=== PATIENT | male | born 1980 | race Caucasian/White ===

== ENCOUNTER 2019-08-26 08:28 | Inpatient (IN) | payer SELFPAY ==
[2019-08-26] MEDS ORDERED: Cefepime(*) 2 GM in NS 0.9% 50 ML* 50 ML IVPB ONE (08:46)
[2019-08-26] MEDS ORDERED: metroNIDAZOLE IV 500 MG/100ML* 500 MG/100 ML BAG IVPB ONE (08:46)
--- NOTE | 2019-08-26 08:46 | ED ---
Skin Complaint - HPI Summary HPI Summary: This pt is a 39 y/o male presenting to [facility] c/o left arm wound and pain since 2 days ago. Pt reports he believes he got stung on his left arm about 2 days ago. He notes that last night his arm began swelling. Denies IVDU. Denies fever or chills. Denies any other symptoms. He currently rates his left arm pain as 5/ 10 in severity and describes it as sore. Pt admits to smoking and occasional alcohol. Denies drug use. PMHx splenectomy. - History of Current Complaint Chief Complaint: EDRashSkinAbscess Stated Complaint: STUNG/BITE PER PATIENT Hx Obtained From: Patient Onset/Duration: Started Days Ago, Still Present Skin Exposure Onset/Duration: Days Ago Timing: Lasting Days Current Severity: Moderate Pain Intensity: 5 Pain Scale Used: 0-10 Numeric Skin Location: Arm - left Character: Swelling, Pain, Redness Aggravating Symptom(s): Nothing Alleviating Symptom(s): Nothing Associated Signs & Symptoms: Negative Related History: Other: - hx splenectomy - Allergy/Home Medications Allergies/Adverse Reactions: Allergies Allergy/AdvReac Type Severity Reaction Status Date / Time No Known Allergies Allergy Verified 08/26/19 08:37 Home Medications: Home Medications NK [No Home Medications Reported] 08/26/19 [History Confirmed 08/26/19] PMH/Surg Hx/FS Hx/Imm Hx Endocrine/Hematology History: Denies: Hx Diabetes Cardiovascular History: Denies: Hx Hypertension - Surgical History Surgical History: Yes Surgery Procedure, Year, and Place: Splenectomy Infectious Disease History: No Infectious Disease History: Denies: Traveled Outside the [place] in Last 30 Days - Family History Known Family History: Positive: Hypertension, Diabetes - grandmother - Social History Alcohol Use: Occasionally Substance Use Type: Reports: None Smoking Status (MU): Current Some Day Smoker Review of Systems Negative: Fever, Chills ENT: Negative Cardiovascular: Negative Musculoskeletal: Other - POSITIVE: left arm pain Skin: Other - POSITIVE: swelling on left arm, wound on left arm All Other Systems Reviewed And Are Negative: Yes Physical Exam - Summary Physical Exam Summary: VITAL SIGNS: Reviewed. GENERAL: Patient is a well-developed and nourished male who is lying comfortable in the stretcher. Patient is not in any acute respiratory distress. HEAD AND FACE: No signs of trauma. No ecchymosis, hematomas or skull depressions. No sinus tenderness. EYES: PERRLA, EOMI x 2, No injected conjunctiva, no nystagmus. EARS: Hearing grossly intact. Ear canals and tympanic membranes are within normal limits. MOUTH: Oropharynx within normal limits. NECK: Supple, trachea is midline, no adenopathy, no JVD, no carotid bruit, no c- spine tenderness, neck with full ROM. CHEST: Symmetric, no tenderness at palpation. LUNGS: Clear to auscultation bilaterally. No wheezing or crackles. CVS: Regular rate and rhythm, S1 and S2 present, no murmurs or gallops appreciated. ABDOMEN: Soft, non-tender. No signs of distention. No rebound, no guarding, and no masses palpated. Bowel sounds are normal. EXTREMITIES: FROM in all major joints, no cyanosis or clubbing. NEURO: Alert and oriented x 3. No acute neurological deficits. Speech is normal and follows commands. SKIN: Dry and warm. Swelling in the left upper extremities from the wrist up to the elbow. Good pulses, Good capillary refill. There is an open wound in the ventral aspect of the left forearm. Triage Information Reviewed: Yes Vital Signs On Initial Exam: Initial Vitals Temp Pulse Resp BP Pulse Ox 99.4 F 81 20 153/107 97 08/26/19 08:32 08/26/19 08:32 08/26/19 08:32 08/26/19 08:32 08/26/19 08:32 Vital Signs Reviewed: Yes Procedures - Sedation Patient Received Moderate/Deep Sedation with Procedure: No Diagnostics - Vital Signs Vital Signs Temp Pulse Resp BP Pulse Ox 08/26/19 08:32 99.4 F 81 20 153/107 97 - Laboratory Result Diagrams: 08/26/19 09:06 08/26/19 09:06 Lab Statement: Any lab studies that have been ordered have been reviewed, and results considered in the medical decision making process. - Radiology Chest XR Radiology Interpretation Completed By: Radiologist Summary of Radiographic Findings: IMPRESSION: No active cardiopulmonary disease. Dr. Main has reviewed this report. - Ultrasound No standard instances Ultrasound Interpretation Completed By: Radiologist Summary of Ultrasound Findings: Left upper extremity US IMPRESSION: Extensive subcutaneous edema with a 1.9 cm loculated fluid collection in the subcutaneous soft tissue corresponding to the wound noted in history. Dr. Main has reviewed this report. Course/Dx - Course Assessment/Plan: This pt is a 39 y/o male presenting to [facility] c/o left arm wound and pain since 2 days ago. Pt reports he believes he got stung on his left arm about 2 days ago. He notes that last night his arm began swelling. Denies IVDU. Denies fever or chills. Denies any other symptoms. He currently rates his left arm pain as 5/10 in severity and describes it as sore. Pt admits to smoking and occasional alcohol. Denies drug use. PMHx splenectomy. Blood work without any significant abnormality except for WBCs of 15.1, absolute neutrophils of 9.9, glucose 108, AST is 53. Left forearm ultrasound impression: Extensive subcutaneous edema with a 1.9 cm loculated fluid collections in the subcutaneous soft tissue corresponding to the wound noted in history. The patient has no spleen therefore I started the patient on vancomycin and cefepime and Flagyl. The patient was also given IV fluids. I discussed my physical exam findings with Dr. Bolton from the hospitalist services and she accepts the patient for admission. - Diagnoses Provider Diagnoses: Cellulitis of left forearm - Physician Notifications Discussed Care Of Patient With: Davina Bolton - hospitalist Time Discussed With Above Provider: 09:47 Instructed by Provider To: Admit As Inpatient Discharge ED - Sign-Out/Discharge Documenting (check all that apply): Patient Departure - Admit to [facility] - Discharge Plan Condition: Stable Disposition: ADMITTED TO [facility] - Billing Disposition and Condition Condition: STABLE Disposition: Admitted to [facility] - Attestation Statements Document Initiated by Hero: Yes Documenting Scribe: Nida Phillip Provider For Whom Hero is Documenting (Include Credential): Vick Main MD Scribe Attestation: I, Nida Phillip, scribed for Vick Main MD on 08/26/19 at 1823. Scribe Documentation Reviewed: Yes Provider Attestation: The documentation as recorded by the Nida rodriges accurately reflects the service I personally performed and the decisions made by me, Vick Main MD Status of Scribe Document: Viewed
[2019-08-26] MEDS ORDERED: Vancomycin(*) 1,000 MG in NS 0.9% 250 ML* 250 ML IVPB ONE (08:48)
[2019-08-26 09:16] LABS: Hematocrit 45 % (42-52); Hemoglobin 15.5 g/dL (14.0-18.0); Mean Corpuscular HGB Conc 35 g/dL (31-36); Mean Corpuscular Hemoglobin 33 pg (27-31); Mean Corpuscular Volume 94 fL (80-94); Mean Platelet Volume 8.3 fL (7.4-10.4); Platelet Count 353 10^3/uL (150-450); Red Blood Count 4.76 10^6 /uL (4.18-5.48); Red Cell Distribution Width 13 % (10-15); White Blood Count 15.1 10^3/uL (3.5-10.8)
[2019-08-26 09:21] LABS: INR 0.92 (0.82-1.09)
[2019-08-26 09:35] LABS: Albumin 4.2 g/dL (3.2-5.2); Albumin/Globulin Ratio 1.7 (1-3); BUN/Creatinine Ratio 14.7 (8-20); C Reactive Protein 6.7 mg/L (<8.01); Calcium 9.2 mg/dL (8.6-10.3); EGFR African American 140.3 (>60); EGFR Non-African American 115.9 (>60); Globulin 2.5 g/dL (2-4); Potassium 3.8 mmol/L (3.5-5.0); Total Bilirubin 0.5 mg/dL (0.2-1.0); Total Protein 6.7 g/dL (6.4-8.9)
[2019-08-26 09:38] LABS: ABS Basophils 0.1 10^3/ul (0-0.2); ABS Eosinophils 0.7 10^3/ul (0-0.6); ABS Lymphocytes 2.4 10^3/ul (1.0-4.8); ABS Monocytes 1.9 10^3/ul (0-0.8); ABS Neutrophils 9.9 10^3/ul (1.5-7.7); Eosinophil % 4.7 %; Lymphocyte % 16.2 %
[2019-08-26] MEDS ORDERED: Cefepime 2 GM in Dextrose(*) 2 GM/50 ML BAG IV ONE (10:00)
[2019-08-26 10:37] LABS: Erythrocyte Sed Rate 6 mm/Hr (0-14)
[2019-08-26 12:02] LABS: Urine Appearance Clear; Urine Bilirubin Negative (Negative); Urine Blood Negative (Negative); Urine Color Yellow; Urine Glucose Negative (Negative); Urine Ketones Negative (Negative); Urine Nitrite Negative (Negative); Urine Protein Negative (Negative); Urine Specific Gravity 1.025 (1.010-1.030); Urine Urobilinogen Negative (Negative)
[2019-08-26] MEDS ORDERED: Morphine INJ* 2 MG/ML 1 ML SYRINGE (TWO MG - NEW SYRINGE VERSION) IV PRN (12:36)
[2019-08-26] MEDS ORDERED: Acetaminophen TAB* 325 MG PO PRN (12:36)
[2019-08-26] MEDS ORDERED: ceFAZolin 2 GM PREMIX in ORs 2 GM/50 ML BAG IVPB SCH (13:00)
--- NOTE | 2019-08-26 14:59 | HP ---
DATE OF ADMISSION: 08/26/2019. PRIMARY CARE PHYSICIAN: None. CHIEF COMPLAINT: Left arm redness, pain, and swelling. HISTORY OF PRESENT ILLNESS: Mr. Gregorio is a 39-year-old male with no significant past medical history except for splenectomy due to trauma in the past who presented to the emergency room with complaints of left arm redness, pain, and swelling. The patient states that approximately two days ago he thought he either got a bug bite or a sting on his left forearm. Yesterday, early afternoon, he noted that there was a small blister at the site of the bite. By evening, he noted that the arm began to swell, turn red, and the blister was much larger. Today, the pain is more severe, the redness is more severe, as is the swelling and therefore he presented to the emergency room for evaluation. The patient denies any fevers or chills. He states his appetite has been fine. He has no pain on active movement of the elbow. The arm itself is uncomfortable and he describes a tightness sensation. PAST MEDICAL HISTORY: None. PAST SURGICAL HISTORY: Splenectomy. MEDICATIONS: None. ALLERGIES: No known drug allergies. FAMILY HISTORY: Mom is living and healthy. Dad is living and at 64 he may have some sort of autoimmune process. SOCIAL HISTORY: The patient smokes approximately one pack per day and has done so for many years. He drinks alcohol several times per week. He works as a cook at the [employer]. He is not . He has no children. His mom would be his healthcare proxy. REVIEW OF SYSTEMS: A complete 11 system review of systems was obtained. Pertinent positives and negatives are as her HPI and otherwise negative. PHYSICAL EXAMINATION GENERAL: The patient is a well-developed, middle-aged male seen sitting up in the stretcher in no acute distress. VITAL SIGNS: Blood pressure 153/107, pulse 81, respirations 20, temperature 99.4, O2 sat97 percent on room air. HEENT: Pupils are equal and round. Extraocular muscles are intact. Oropharynx is clear. Oral mucosa is moist. NECK: There is no submandibular, cervical or supraclavicular adenopathy. CARDIAC: Normal S1, S2. Regular rate and rhythm. I do not appreciate any murmurs. PULMONARY: Lungs are clear to auscultation bilaterally. ABDOMEN: Bowel sounds are present. Abdomen is soft, nontender, nondistended. MUSCULOSKELETAL: There is no cyanosis or clubbing of the digits. There is full active range of motion of all four extremities. SKIN: The patient's left forearm is swollen. There is well-demarcated erythema involving the medial aspect of the forearm tracking up past the elbow to the medial upper arm. There is an approximately quarter-sized area that appears to be a fluid- filled blister with smaller intact blisters around the larger one. NEUROLOGIC: Cranial nerves II through XII are grossly intact. Sensation is intact to light touch throughout. Strength is 5/5 and symmetric in both upper extremities bilaterally. PSYCH: The patient is alert. He is oriented times three. Affect appears appropriate. LABORATORY DATA: WBC 15.1, hemoglobin 15.5, hematocrit 45, platelet 353, ESR 6 ; INR 0.92; sodium 137, potassium 3.8, chloride 104, CO2 26, BUN 11, creatinine 0.7, glucose 108, lactic acid less than 0.3, calcium 9.2, bilirubin 0.5, AST 31 , ALT 53, alk phos 76, troponin 0, albumin 4.2. Urinalysis is pending. IMAGING STUDIES: 1. Chest x-ray: No active cardiopulmonary disease. 2. Soft tissue ultrasound of the left arm reveals extensive subcutaneous edema with a 1.9 cm loculated fluid collection in the subcutaneous soft tissue corresponding to the wound noted in history. ASSESSMENT AND PLAN: Mr. Gregorio is a 39-year-old male with no significant past medical history except for previous splenectomy who presents to the emergency room with complaints of left arm pain, redness and swelling. 1. Left arm cellulitis: At this point, the patient has a significant left arm cellulitis. What is odd about this is the patient's markers of inflammation, including ESR and CRP are not very elevated and he has not had a true fever. The patient, however, will be admitted and placed on IV Cefazolin. He received Vanco and Cefepime in the emergency room. I will have Dr. Baker see the patient today in consultation for further recommendations. We will get follow- up labs tomorrow. At this time, there is no evidence of abscess or fluid collection to be drained, though it does appear that somebody attempted to culture the blister on the arm. No organisms were seen in that. 2. DVT prophylaxis: According to the Adult Thrombosis Prophylaxis Risk Factor Assessment Guide, the patient has a total risk factor score of 2 making him moderate risk. Ambulation will be utilized as DVT prophylaxis. CODE STATUS: Full. TIME SPENT: Fifty-five minutes were spent admitting this patient. [id number]/[facility] #: [id number] MTDD
[2019-08-26] MEDS: NS 0.9% 1000 ML** 1,000 ML IV SCH (15:26)
--- NOTE | 2019-08-26 15:58 | CONS ---
CONSULTATION REPORT: DATE OF CONSULT: 08/26/19 REQUESTING PHYSICIAN: Dr. Bolton. CONSULTING SERVICE: Infectious Disease. REASON FOR CONSULTATION: Left arm cellulitis. IMPRESSION: 1. Left forearm diffuse cellulitis. Range of motion of the wrist and elbow are intact. There is also a 2 cm blister filled with purulent fluid in the forearm without underlying fluctuance. His white count is 15,000. No known trauma. Differential includes most likely gram-positive organisms, Staph and Strep including group A Streptococcus. He has not had rapid progression to suggest a necrotizing fasciitis. 2. Obesity. 3. Tobacco abuse. 4. Status post splenectomy. RECOMMENDATION: I will continue vancomycin, goal trough 15 to 20 along with ceftriaxone and clindamycin. We will add a CK and follow that as well as C- reactive protein. If not improving, he will need orthopedics consultation for drainage of a small collection seen on ultrasound. HISTORY OF PRESENT ILLNESS: This is a 39-year-old man who developed left arm swelling and pain after what seemed like a bug bite about 2 days ago, was sitting on the couch, he has had the sudden onset of pain in the left arm and in the next day, noticed a small eschar and then had worsening pain and swelling , came to the ER this morning. His white count is 15,000. He had a dose of vancomycin, cefepime, and Flagyl. He is afebrile here. He has not had other skin infections before. He does have a history of splenectomy. Ultrasound was done that showed 2 cm loculated fluid collection in the subcu soft tissues. Culture of serous fluid was taken that shows neutrophils and epithelials, no organisms. Cultures pending. PAST MEDICAL HISTORY: Obesity. PAST SURGICAL HISTORY: Status post splenectomy after a snowboarding accident. MEDICATIONS: 1. Cefazolin 2 g IV every 8 hours. 2. Tylenol. 3. Nicotine gum. 4. Morphine as needed. 5. Oxycodone as needed. ALLERGIES: No known drug allergies. FAMILY HISTORY: Parents both alive and healthy. SOCIAL HISTORY: He lives in [place]. He works at the [employer] as a cook. Drinks alcohol. Denies injection drugs. REVIEW OF SYSTEMS: All negative except as noted above to 12-point review of systems. PHYSICAL EXAM: Vital Signs: Temperature 36.4, heart rate 88, respiratory rate 18, blood pressure 154/78, oxygen saturation 99% on room air. In general, he is awake, not in distress. Neurologic: He is oriented x3, follows all commands. HEENT: There is no conjunctival hemorrhage. Oropharynx without lesions. Neck: Supple without mass. Heart is regular rate and rhythm without murmurs, rubs, or gallops. Lungs are clear to auscultation bilaterally. Abdomen is soft, nontender, nondistended. There are bowel sounds present. Skin : There is no rash or splinter hemorrhage. Musculoskeletal: Left forearm with diffuse edema with about a centimeter and half below with some purulent fluid. There is no surrounding crepitus or fluctuance. There is diffuse edema and induration with warmth and erythema. There is no tenderness of the wrist or elbow and range of motion of those joints are full. DIAGNOSTIC STUDIES/LAB DATA: White blood cell count 15, hemoglobin 15.5, platelets 353. Creatinine 0.7. ALT 53. Please see impression and recommendations outlined above. Thank you for asking me to see Mr. Gregorio in consultation. [id number]/[facility] #: [id number] EFRAIN
[2019-08-26] MEDS ORDERED: Vancomycin per Pharmacy* NOTE FOLLOW UP SCH (16:00)
[2019-08-26] MEDS: Clindamycin 600 MG/D5W BAG(*) 600 MG/50 ML BAG IV SCH (16:10)
[2019-08-26] MEDS: cefTRIAXone(*) 2 GM in NS 0.9% 100 ML* 100 ML IVPB SCH (16:46)
[2019-08-26] MEDS: Nicotine* 2MG (FRUIT FLAVOR) GUM PO PRN (17:13)
[2019-08-26] MEDS: oxyCODONE TAB* 5 MG TAB PO PRN ×2 (17:13→21:31)
[2019-08-26] MEDS: Vancomycin(*) 1,250 MG in NS 0.9% 250 ML* 250 ML IVPB SCH (17:55)
[2019-08-26] MEDS ORDERED: LORazepam TAB(*) 1 MG PO SCH (19:00)
[2019-08-26] MEDS ORDERED: ceFAZolin 2 GM PREMIX 2 GM/50 ML BAG IVPB SCH (21:00)
[2019-08-26] MEDS: Nicotine Patch Removal NOTE FOLLOW UP SCH (21:31)
[2019-08-27] MEDS: Clindamycin 600 MG/D5W BAG(*) 600 MG/50 ML BAG IV SCH ×3 (00:21→16:42)
[2019-08-27] MEDS: Vancomycin(*) 1,250 MG in NS 0.9% 250 ML* 250 ML IVPB SCH ×3 (02:08→17:59)
[2019-08-27 07:01] LABS: Hematocrit 41 % (42-52); Hemoglobin 14.1 g/dL (14.0-18.0); Mean Corpuscular HGB Conc 35 g/dL (31-36); Mean Corpuscular Hemoglobin 33 pg (27-31); Mean Corpuscular Volume 94 fL (80-94); Mean Platelet Volume 8.9 fL (7.4-10.4); Platelet Count 342 10^3/uL (150-450); Red Blood Count 4.33 10^6 /uL (4.18-5.48); Red Cell Distribution Width 13 % (10-15); White Blood Count 11.4 10^3/uL (3.5-10.8)
[2019-08-27 07:12] LABS: ABS Basophils 0.1 10^3/ul (0-0.2); ABS Eosinophils 0.9 10^3/ul (0-0.6); ABS Lymphocytes 2.5 10^3/ul (1.0-4.8); ABS Monocytes 1.6 10^3/ul (0-0.8); ABS Neutrophils 6.3 10^3/ul (1.5-7.7); Eosinophil % 7.8 %; Lymphocyte % 22.3 %; Nucleated Red Blood Cells % 0.1
[2019-08-27 07:19] LABS: BUN/Creatinine Ratio 11.6 (8-20); Calcium 8.6 mg/dL (8.6-10.3); EGFR African American 154.5 (>60); EGFR Non-African American 127.6 (>60); Potassium 3.7 mmol/L (3.5-5.0)
[2019-08-27] MEDS: Nicotine PATCH 21 MG/24 HR* PATCH TRANSDERM SCH (08:24)
--- NOTE | 2019-08-27 08:48 | PN ---
Subjective Date of Service: 08/27/19 Interval History: Pt is feeling ok. His arm is still feeling tight and somewhat painful. He noticed the redness has improved. He has continued to have drainage from the blister on the L forearm. Objective Active Medications: Acetaminophen (Tylenol Tab*) 650 mg PO Q4H PRN PRN Reason: PAIN - MILD Last Admin: 08/27/19 08:23 Dose: 650 mg Sodium Chloride (Ns 0.9% 1000 Ml) 1,000 mls @ 100 mls/hr IV PER RATE [facility] Last Admin: 08/26/19 15:26 Dose: 100 mls/hr Clindamycin HCl/Dextrose (Cleocin 600 Mg/50 Ml(*)) 600 mg in 50 mls @ 100 mls/ hr IV Q8H [facility] Last Admin: 08/27/19 08:25 Dose: 100 mls/hr Vancomycin HCl 1,250 mg/ (Sodium Chloride) 250 mls @ 166.667 mls/hr IVPB Q8H [facility]; Protocol Last Admin: 08/27/19 02:08 Dose: 166.667 mls/hr Ceftriaxone Sodium 2 gm/ (Sodium Chloride) 100 mls @ 200 mls/hr IVPB Q24H [facility] Last Admin: 08/26/19 16:46 Dose: 200 mls/hr Influenza Virus Vaccine (Fluarix Quad [id number] Syr) 0.5 ml IM .ONCE ONE Stop: 08/27/19 09:01 Last Admin: 08/27/19 08:38 Dose: 0.5 ml Lorazepam (Ativan Tab(*)) 0 - 6 mg PO .PER [place] PROTOCOL [facility]; Protocol Morphine Sulfate (Morphine Inj (Syringe))*) 2 mg IV Q4H PRN PRN Reason: PAIN - SEVERE Nicotine (Nicotine Patch 21 Mg/24 Hr*) 1 patch TRANSDERM DAILY@0800 [facility] Last Admin: 08/27/19 08:24 Dose: 1 patch Nicotine Polacrilex (Nicotine Gum*) 2 mg PO Q2H PRN PRN Reason: CRAVING Last Admin: 08/26/19 17:13 Dose: 2 mg Oxycodone HCl (Roxycodone Tab*) 5 mg PO Q4H PRN PRN Reason: PAIN - MODERATE Last Admin: 08/26/19 21:31 Dose: 5 mg Pharmacy Consult (Vancomycin Per Pharmacy*) 1 note FOLLOW UP .VANC PER PHARMACY [facility]; Protocol Pharmacy Profile Note (Nicotine Patch Removal Note*) 1 note FOLLOW UP 2099 [facility] Last Admin: 08/26/19 21:31 Dose: Not Given Pharmacy Profile Note (Vancomycin Trough Check) 1 note FOLLOW UP 1700 ONE Stop: 08/27/19 17:01 Vital Signs - 8 hr 08/27/19 03:15 Temperature 98.1 F Pulse Rate 63 Respiratory 18 Rate Blood Pressure 142/82 (mmHg) O2 Sat by Pulse 96 Oximetry Oxygen Devices in Use Now: None Appearance: Middle aged male sitting up in bed, NAD Eyes: No Scleral Icterus Ears/Nose/Mouth/Throat: Mucous Membranes Moist Respiratory: Symmetrical Chest Expansion and Respiratory Effort, Clear to Auscultation Cardiovascular: NL Sounds; No Murmurs; No JVD, RRR, No Edema Abdominal: NL Sounds; No Tenderness; No Distention Extremities: No Clubbing, Cyanosis Skin: - - minimal L forearm/upper arm erythema, still swollen (non-pitting), blister still present with smaller blisters surrounding Neurological: Alert and Oriented x 3 Result Diagrams: 08/27/19 06:34 08/27/19 06:34 Microbiology and Other Data: Microbiology 08/26/19 08:55 Gram Stain - Final Arm Left Assess/Plan/Problems-Billing Mr Gregorio is a 39 yo M who has no PMHx who presented to the ER with c/o L arm redness, pain and swelling and was admitted for cellulitis. - Patient Problems (1) Cellulitis of forearm, left Current Visit: Yes Status: Acute Code(s): L03.114 - CELLULITIS OF LEFT UPPER LIMB SNOMED Code(s): 79646207 Comment: Pt much improved today in terms of erythema, no worsening of the blisters. Appreciate ID consult. Continue ceftriaxone, vancomycin and clindamycin. Will reassess tomorrow- if failure to improve with ask for ortho consult. (2) DVT prophylaxis Current Visit: Yes Status: Acute Code(s): Z29.9 - ENCOUNTER FOR PROPHYLACTIC MEASURES, UNSPECIFIED SNOMED Code(s): 390490213 Comment: ambulation (3) Full code status Current Visit: Yes Status: Acute Code(s): Z78.9 - OTHER SPECIFIED HEALTH STATUS SNOMED Code(s): 230249156
[2019-08-27] MEDS ORDERED: Influenza VAC *QUAD* 2019-20* 0.5 ML SYRINGE IM ONE (09:00)
[2019-08-27] MEDS: cefTRIAXone(*) 2 GM in NS 0.9% 100 ML* 100 ML IVPB SCH (15:53)
[2019-08-27] MEDS ORDERED: Vancomycin Trough Check NOTE FOLLOW UP ONE (17:00)
[2019-08-27] MEDS: Nicotine Patch Removal NOTE FOLLOW UP SCH (19:41)
[2019-08-28] MEDS: Clindamycin 600 MG/D5W BAG(*) 600 MG/50 ML BAG IV SCH ×3 (00:48→16:38)
[2019-08-28] MEDS: NS 0.9% 1000 ML** 1,000 ML IV SCH (00:48)
[2019-08-28] MEDS ORDERED: NS 0.9% 250 ML* 250 ML ONE (05:07)
[2019-08-28] MEDS: Vancomycin(*) 1,000 MG in NS 0.9% 250 ML* 250 ML IVPB SCH ×3 (05:21→21:25)
[2019-08-28] MEDS: Nicotine PATCH 21 MG/24 HR* PATCH TRANSDERM SCH (09:07)
--- NOTE | 2019-08-28 09:34 | PN ---
Subjective Date of Service: 08/28/19 Interval History: Pt is feeling well. He denies any significant pain in the arm. There is still swelling and more focal induration around the blister lesion on the left forearm. He is having loose stools, 3-4x/day. Objective Active Medications: Acetaminophen (Tylenol Tab*) 650 mg PO Q4H PRN PRN Reason: PAIN - MILD Last Admin: 08/27/19 08:23 Dose: 650 mg Sodium Chloride (Ns 0.9% 1000 Ml) 1,000 mls @ 100 mls/hr IV PER RATE [facility] Last Admin: 08/28/19 00:48 Dose: 100 mls/hr Clindamycin HCl/Dextrose (Cleocin 600 Mg/50 Ml(*)) 600 mg in 50 mls @ 100 mls/ hr IV Q8H [facility] Last Admin: 08/28/19 09:05 Dose: 100 mls/hr Ceftriaxone Sodium 2 gm/ (Sodium Chloride) 100 mls @ 200 mls/hr IVPB Q24H [facility] Last Admin: 08/27/19 15:53 Dose: 200 mls/hr Vancomycin HCl 1,000 mg/ (Sodium Chloride) 250 mls @ 166.667 mls/hr IVPB Q8HR [facility]; Protocol Last Admin: 08/28/19 05:21 Dose: 166.667 mls/hr Morphine Sulfate (Morphine Inj (Syringe))*) 2 mg IV Q4H PRN PRN Reason: PAIN - SEVERE Nicotine (Nicotine Patch 21 Mg/24 Hr*) 1 patch TRANSDERM DAILY@0800 [facility] Last Admin: 08/28/19 09:07 Dose: 1 patch Nicotine Polacrilex (Nicotine Gum*) 2 mg PO Q2H PRN PRN Reason: CRAVING Last Admin: 08/26/19 17:13 Dose: 2 mg Oxycodone HCl (Roxycodone Tab*) 5 mg PO Q4H PRN PRN Reason: PAIN - MODERATE Last Admin: 08/26/19 21:31 Dose: 5 mg Pharmacy Consult (Vancomycin Per Pharmacy*) 1 note FOLLOW UP .VANC PER PHARMACY [facility]; Protocol Pharmacy Profile Note (Nicotine Patch Removal Note*) 1 note FOLLOW UP 2100 [facility] Last Admin: 08/27/19 19:41 Dose: Not Given Pharmacy Profile Note (Vancomycin Trough Check) 1 note FOLLOW UP ONCE ONE Stop: 08/29/19 05:31 Vital Signs - 8 hr 08/28/19 08/28/19 03:15 08:00 Temperature 97.3 F Pulse Rate 73 Respiratory 19 17 Rate Blood Pressure 127/70 (mmHg) O2 Sat by Pulse 99 Oximetry Oxygen Devices in Use Now: None Appearance: Middle aged male sitting up in bed, NAD Eyes: No Scleral Icterus Ears/Nose/Mouth/Throat: Mucous Membranes Moist Respiratory: Symmetrical Chest Expansion and Respiratory Effort Cardiovascular: NL Sounds; No Murmurs; No JVD, RRR Abdominal: NL Sounds; No Tenderness; No Distention Extremities: No Clubbing, Cyanosis Skin: - - no erythema of the left arm except a small area surrounding the drying out blister on the forearm, there is focal induration around the blister Neurological: Alert and Oriented x 3 Result Diagrams: 08/27/19 06:34 08/27/19 06:34 Microbiology and Other Data: Microbiology 08/26/19 08:55 Gram Stain - Final Arm Left Assess/Plan/Problems-Billing Mr Gregorio is a 39 yo M who has no PMHx who presented to the ER with c/o L arm redness, pain and swelling and was admitted for cellulitis. - Patient Problems (1) Cellulitis of forearm, left Current Visit: Yes Status: Acute Code(s): L03.114 - CELLULITIS OF LEFT UPPER LIMB SNOMED Code(s): 17845273 Comment: Pt continues to improve but his arm is still swollen. Continue ceftriaxone, vanco and clinda. Await further ID input tomorrow for Abx choice. I think he can likely be d/zeny home tomorrow. (2) DVT prophylaxis Current Visit: Yes Status: Acute Code(s): Z29.9 - ENCOUNTER FOR PROPHYLACTIC MEASURES, UNSPECIFIED SNOMED Code(s): 831986003 Comment: ambulation (3) Full code status Current Visit: Yes Status: Acute Code(s): Z78.9 - OTHER SPECIFIED HEALTH STATUS SNOMED Code(s): 099867177
[2019-08-28] MEDS: cefTRIAXone(*) 2 GM in NS 0.9% 100 ML* 100 ML IVPB SCH (16:10)
[2019-08-28] MEDS: Nicotine Patch Removal NOTE FOLLOW UP SCH (21:25)
[2019-08-28] MEDS: Nicotine* 2MG (FRUIT FLAVOR) GUM PO PRN (21:30)
[2019-08-29] MEDS: Clindamycin 600 MG/D5W BAG(*) 600 MG/50 ML BAG IV SCH ×2 (00:23→08:07)
[2019-08-29] MEDS ORDERED: Vancomycin Trough Check NOTE FOLLOW UP ONE (05:30)
[2019-08-29 07:04] LABS: Hematocrit 43 % (42-52); Hemoglobin 14.6 g/dL (14.0-18.0); Mean Corpuscular HGB Conc 34 g/dL (31-36); Mean Corpuscular Hemoglobin 32 pg (27-31); Mean Corpuscular Volume 95 fL (80-94); Mean Platelet Volume 8.8 fL (7.4-10.4); Platelet Count 363 10^3/uL (150-450); Red Blood Count 4.58 10^6 /uL (4.18-5.48); Red Cell Distribution Width 13 % (10-15); White Blood Count 13.1 10^3/uL (3.5-10.8)
[2019-08-29] MEDS: Nicotine PATCH 21 MG/24 HR* PATCH TRANSDERM SCH (08:08)
[2019-08-29] MEDS: Vancomycin(*) 1,000 MG in NS 0.9% 250 ML* 250 ML IVPB SCH (08:37)
[2019-08-29] MEDS ORDERED: Vancomycin(*) 1,250 MG in NS 0.9% 250 ML* 250 ML IVPB SCH (09:04)
[2019-08-29 11:21] VITALS: BP 144/86
--- NOTE | 2019-08-30 09:59 | DS ---
CC: [facility]; Dr. Pichardo; Dr. Sheehan * DISCHARGE SUMMARY: DATE OF ADMISSION: 08/26/19 DATE OF DISCHARGE: 08/29/19 PROVIDER: YINA Demarco ATTENDING PROVIDER: Kaur Orosco MD * (DICTATED BY YINA DEMARCO) PRIMARY CARE PROVIDER: None. CONSULTING INFECTIOUS DISEASE PHYSICIAN: Dr. Baker. PRIMARY DIAGNOSIS: Left upper extremity cellulitis, improved. SECONDARY DIAGNOSES: 1. Status post splenectomy. 2. Tobacco use. 3. Obesity. HISTORY OF PRESENT ILLNESS/HOSPITAL COURSE: Mau Gregorio is a 39-year-old white male with past medical history significant for splenectomy and tobacco use , who presented to emergency department on 08/26/19 due to left upper extremity erythema with a central blister. For further information, please see admitting history and physical written by Dr. Davina Bolton. The patient was afebrile, but did have a leukocytosis which began down trending this hospital stay. The patient was seen by Infectious Disease and was initially started on vancomycin. The patient had great improvement on 3 agents of clindamycin, ceftriaxone, and vancomycin, which were continued until the wound culture and sensitivity had returned. The wound culture from the central blister demonstrated klebsiella , which was sensitive to cephalosporins. The patient had great improvement of the erythema, with several inches of erythema receding from the initial margins. The patient's central fluid collection and the blister is still present, but is without purulent drainage. The patient was afebrile as well. The patient lives in [place], however, commutes to [place] daily for work and was agreeable to close followup with the [facility] given that he has no PCP. When the Infectious Disease evaluated the patient, they suggested that if the patient has no improvement, then drainage of the collection should occur. However, because there was great improvement, this is not deemed necessary at this time. PHYSICAL EXAMINATION ON THE DAY OF DISCHARGE: General: Obese, middle-aged white male, sitting upright in the side of bed, appearing comfortable and in no acute distress. Eyes: PERRLA. Sclerae anicteric. ENT: Mucous membranes are moist. Neck: Supple. Lungs: Clear to auscultation throughout. Cardio: Regular rate and rhythm without murmur, rubs, or gallops. Abdomen: Soft, nontender, nondistended. Extremities: No clubbing, cyanosis, or edema. Neuro : Alert and oriented x3. No focal deficits. No tremors. Skin: Approximately 2 cm in diameter bullae on the left upper extremity on the forearm with surrounding erythema approximately 2 cm beyond that. No purulent drainage with expression. Erythema is blanchable, nontender. DISCHARGE PLAN: DIET: Regular unrestricted diet. ACTIVITY: The patient may return to normal activity as tolerated. The patient is advised to return to the emergency department if he develops streaking up his arms, fever or chills, purulent drainage from the wound. The patient understands that he has appointment scheduled at 8 o'clock on 09/05/19 in the [facility]. DISCHARGE MEDICATIONS: 1. Keflex 500 mg p.o. 4 times a day x11 days. 2. Nicotine patch 21 mg/24 hours transdermally daily. 3. Tylenol 650 mg p.o. q.4 hours p.r.n. pain. Continued home medications: Not applicable. CONDITION ON DISCHARGE: Stable. DISPOSITION: Home. TIME SPENT: Approximately 35 minutes was spent on this discharge, approximately half of this time was spent at the bedside evaluating the patient and discussing the plan for care. YINA DEMARCO [id number]/CPS #: [id number] MTDD
[2019-08-31] MEDS ORDERED: Vancomycin Trough Check NOTE FOLLOW UP ONE (05:30)
== END 2019-08-29 12:30 | disposition home or self-care (01) | DRG 603 ==
LOC: ED 08:28 → UNDOADMIN 12:28 → MED 12:28 → UNDODISIN 08-29 12:30
PROVIDERS: ADMIT Hospitalist; ATTEND Internal Medicine
DX: L03.114 Cellulitis of left upper limb (principal); B96.1 Klebsiella pneumoniae [K. pneumoniae] as the cause of diseases classified elsewhere; F17.210 Nicotine dependence, cigarettes, uncomplicated; E66.9 Obesity, unspecified; Z68.35 Body mass index [BMI] 35.0-35.9, adult; Z90.81 Acquired absence of spleen
CPT/HCPCS: 36415; 71045; 80048; 80053; 80202; 81003; 82550; 83605; 84484; 85025; 85027; 85610; 85652; 86140; 87040; 87070; 87077; 87186; 87205; 96365; 96367; 96375; 99284; A9270-GY; J0690; J0692; J0696; J3370